=== PATIENT | female | born 1965 | race African-American/Black ===

== ENCOUNTER 2017-09-28 14:55 | Emergency (ER) | payer MEDICAID, OTHER ==
[~2017-09-28] VITALS: Ht 160 cm; Wt 60.0 kg
[2017-09-28] MEDS ORDERED: METOCLOPRAMIDE HCL 10MG/2ML VIAL IV ONE (15:45)
[2017-09-28] MEDS ORDERED: SODIUM CHLORIDE 0.9% 1,000 ML IV ONE (15:45)
[2017-09-28 16:19] LABS: CHLORIDE 104 mEq/L (98-107)
[2017-09-28 16:28] LABS: HEMATOCRIT. 31.8 % (36.0-48.0); HEMOGLOBIN. 10.7 g/dL (12.0-16.0); MEAN CORPUSCULAR HEMOGLOBIN 26.4 pg (28.0-32.0); MEAN CORPUSCULAR VOLUME 78.5 fL (81.0-99.0); MEAN PLATELET VOLUME 8.6 fl (7.4-10.4); PLATELET 135 x1000/uL (130-400); RED BLOOD CELL COUNT 4.05 mill/uL (4.2-5.4); RED CELL DISTRIBUTION WIDTH 14.7 % (11.6-14.6)
[2017-09-28 16:30] LABS: CARBON DIOXIDE 23 mEq/L (21-32)
[2017-09-28 17:43] LABS: PLATELET ESTIMATE NORMAL
[2017-09-28 19:25] VITALS: BP 127/86
== END 2017-09-28 19:32 | disposition home or self-care (01) ==
LOC: ER 15:06
DX: R53.1 Weakness (principal); M79.604 Pain in right leg; D72.819 Decreased white blood cell count, unspecified; D64.9 Anemia, unspecified; E87.6 Hypokalemia; V43.52XA Car driver injured in collision with other type car in traffic accident, initial encounter; Y93.89 Activity, other specified; Y92.488 Other paved roadways as the place of occurrence of the external cause
CPT/HCPCS: 36415; 80053; 85025; 87070; 87430; 96361; 96374; 99284; J2765; J7030; Z7610

== ENCOUNTER 2018-06-02 01:08 | Inpatient (IN) | payer OTHER, MEDICAID ==
[~2018-06-02] VITALS: Ht 167.6 cm; Wt 47.6 kg
[2018-06-02] VITALS (7 sets, daily range): BP systolic 96–104; BP diastolic 66–79
[2018-06-02 02:25] LABS: HEMATOCRIT. 30.8 % (36.0-48.0); HEMOGLOBIN. 10.2 g/dL (12.0-16.0); MEAN CORPUSCULAR HEMOGLOBIN 27.8 pg (28.0-32.0); MEAN CORPUSCULAR VOLUME 83.8 fL (81.0-99.0); MEAN PLATELET VOLUME 8.5 fl (7.4-10.4); PLATELET 215 x1000/uL (130-400); RED BLOOD CELL COUNT 3.68 mill/uL (4.2-5.4); RED CELL DISTRIBUTION WIDTH 13.9 % (11.6-14.6)
[2018-06-02 02:33] LABS: AMMONIA < 10 uMol/L (<32)
[2018-06-02 02:38] LABS: CHLORIDE 103 mEq/L (98-107)
[2018-06-02 02:42] LABS: ETHANOL BLOOD < 10 mg/dL
[2018-06-02 03:11] LABS: PLATELET ESTIMATE NORMAL
[2018-06-02] MEDS ORDERED: ACYCLOVIR INJ 750 MG in DEXT 5% WATER 100 ML IV SCH (04:30)
[2018-06-02 05:10] LABS: CLARITY URINE CLOUDY (CLEAR); COLOR URINE YELLOW (YELLOW); KETONES URINE NEGATIVE (NEGATIVE); LEUKOCYTE ESTERASE URINE 2+ (NEGATIVE); NITRITE URINE NEGATIVE (NEGATIVE); OCCULT BLOOD URINE 1+ (NEGATIVE); PH URINE 6.5 (4.5-8.0); PROTEIN URINE 2+ (NEGATIVE); SPECIFIC GRAVITY URINE 1.017 (1.005-1.030); UROBILINOGEN URINE 0.2 E.U./dL (0.2-1.0)
[2018-06-02] MEDS ORDERED: CEFTRIAXONE SODIUM 500 MG/VIAL IM SCH (05:10)
[2018-06-02 05:38] LABS: *AMPHETAMINES SCREEN URINE NEGATIVE (NEGATIVE)
[2018-06-02 05:39] LABS: *BARBITURATES SCREEN URINE NEGATIVE (NEGATIVE); *BENZODIAZEPINES SCREEN URINE NEGATIVE (NEGATIVE); *COCAINE SCREEN URINE NEGATIVE (NEGATIVE); METHADONE URINE SCREEN NEGATIVE (NEGATIVE); OPIATES URINE SCREEN NEGATIVE (NEGATIVE); PHENCYCLIDINE URINE SCREEN NEGATIVE (NEGATIVE)
[2018-06-02 05:40] LABS: CANNABINOID URINE SCREEN NEGATIVE (NEGATIVE)
[2018-06-02] MEDS ORDERED: AZITHROMYCIN 500 MG in DEXT 5% WATER 250 ML IV SCH (06:00)
[2018-06-02] MEDS ORDERED: IOHEXOL-300 100 ML BOTTLE ONE (06:40)
[2018-06-02] MEDS ORDERED: ACYCLOVIR INJ 550 MG in DEXT 5% WATER 100 ML IV SCH (07:00)
[2018-06-02] MEDS ORDERED: ACETAMINOPHEN 325MG TABLET PO PRN (11:30)
[2018-06-02] MEDS ORDERED: ONDANSETRON HCL 4MG/2ML INJ IV PRN (11:30)
[2018-06-02] MEDS ORDERED: ONDANSETRON 4MG ODT PO PRN (12:00)
[2018-06-02] MEDS: LEVOFLOXACIN 500MG PREMIX 100 ML IV SCH (14:34)
[2018-06-02] MEDS ORDERED: EMTR1TAB12 PO (20:20)
[2018-06-02] MEDS ORDERED: RITO100T PO (20:20)
[2018-06-02] MEDS ORDERED: DARU600T PO (20:20)
[2018-06-02] MEDS ORDERED: DOLU50TA PO (20:20)
[2018-06-02] MEDS ORDERED: AZIT500T5 PO (20:20)
[2018-06-02] MEDS: DARUNAVIR 600 MG PO SCH (22:58)
[2018-06-02] MEDS: RITONAVIR 100 MG PO SCH (22:59)
[2018-06-03] VITALS (11 sets, daily range): BP systolic 80–100; BP diastolic 43–82
[2018-06-03 07:02] LABS: HEMATOCRIT. 27.7 % (36.0-48.0); HEMOGLOBIN. 9.4 g/dL (12.0-16.0); MEAN CORPUSCULAR HEMOGLOBIN 28.4 pg (28.0-32.0); MEAN CORPUSCULAR VOLUME 84.2 fL (81.0-99.0); MEAN PLATELET VOLUME 8.7 fl (7.4-10.4); PLATELET 193 x1000/uL (130-400); RED BLOOD CELL COUNT 3.29 mill/uL (4.2-5.4); RED CELL DISTRIBUTION WIDTH 14.4 % (11.6-14.6)
[2018-06-03] MEDS: DARUNAVIR 600 MG PO SCH ×2 (08:30→18:05)
[2018-06-03] MEDS: RITONAVIR 100 MG PO SCH ×2 (08:31→18:05)
[2018-06-03] MEDS ORDERED: DOLUTEGRAVIR 50MG TAB PO SCH (09:00)
[2018-06-03] MEDS ORDERED: EMTRICITABINE PO SCH (09:00)
[2018-06-03] MEDS ORDERED: TENOFOVIR ALAFENAMIDE PO SCH (09:00)
[2018-06-03 09:06] LABS: ABSOLUTE LYMPHOCYTES 0.5 x10E3/uL (0.7-3.1); ABSOLUTE MONOCYTES 0.3 x10E3/uL (0.1-0.9); ABSOLUTE NEUTROPHILS 1.3 x10E3/uL (1.4-7.0); BASOPHILS 0 % (Not Estab.); HEMATOCRIT 29.9 % (34.0-46.6); HEMATOLOGY COMMENT Note: (.); HEMOGLOBIN 9.9 g/dL (11.1-15.9); LYMPHOCYTES 24 % (Not Estab.); MEAN CORPUSCULAR HEMOGLOBIN 27.1 pg (26.6-33.0); MEAN CORPUSCULAR HGB CONC. 33.1 g/dL (31.5-35.7); MEAN CORPUSCULAR VOLUME 82 fL (79-97); MONOCYTES 15 % (Not Estab.); NEUTROPHILS 61 % (Not Estab.); PLATELETS 231 x10E3/uL (150-379); RBC 3.65 x10E6/uL (3.77-5.28); RED CELL DISTRIBUTION WIDTH 14.2 % (12.3-15.4); WBC 2.2 x10E3/uL (3.4-10.8)
[2018-06-03] MEDS: LEVOFLOXACIN 500MG PREMIX 100 ML IV SCH (12:20)
[2018-06-03 16:36] LABS: PLATELET ESTIMATE NORMAL
[2018-06-03 17:06] LABS: % CD 3 POS. LYMPHOCYTES 71.4 % (57.5-86.2); % CD 4 POS. LYMPHOCYTES 7.3 % (30.8-58.5); ABSOLUTE CD 3 357 /uL (622-2402); ABSOLUTE CD 4 HELPER 37 /uL (359-1519); ABSOLUTE CD 8 SUPPRESSOR 320 /uL (109-897); CD4/CD8 RATIO 0.11 (0.92-3.72)
[2018-06-04] MEDS ORDERED: LEVOFLOXACIN 250MG PREMIX 50 ML IV SCH (13:00)
[2018-06-07] MEDS ORDERED: AZITHROMYCIN 600 MG PO SCH (12:00)
== END 2018-06-03 21:30 | disposition home or self-care (01) | DRG 720 ==
LOC: ER 01:08 → 5EST 04:19 → ENRESERV 10:24
PROVIDERS: ADMIT Internal Medicine; ATTEND Internal Medicine
DX: A41.9 Sepsis, unspecified organism (principal); E43 Unspecified severe protein-calorie malnutrition; I42.9 Cardiomyopathy, unspecified; N39.0 Urinary tract infection, site not specified; I11.0 Hypertensive heart disease with heart failure; I50.22 Chronic systolic (congestive) heart failure; D64.9 Anemia, unspecified; Z79.899 Other long term (current) drug therapy; Z68.1 Body mass index [BMI] 19.9 or less, adult; Z21 Asymptomatic human immunodeficiency virus [HIV] infection status
CPT/HCPCS: 36415; 70470; 70551; 71045; 80048; 80053; 80061; 80305; 81003; 82140; 82962; 83605; 83615; 84134; 84443; 84484; 85025; 86359; 86360; 87077; 87086; 93005; 93970; 96365; 96372; 96375; 97116; 97162; 99285; A6261; G0482; J0133; J0456; J0696; J1956; J7050; J7060; Q9967